=== PATIENT | female | born 1950 | race Two or more races ===

== ENCOUNTER 2016-10-01 18:18 | Emergency (ER) | payer MEDICARE, OTHER ==
[~2016-10-01 18:18] MED LIST: ATORVASTATIN CA10 M1 PO; CIPRO500 MG PO; COREG6.25 M1 PO; CYMBALTA60 M1 PO; CYMBALTA60 MG PO; DARVOCET-N 1001 TAB; ESTRATEST H.S.1 TAB PO; LOVENOX40 MG/0.4 SQ; MACROBID100 MG/CAP PO; MELOXICAM7.5 MG PO; MOBIC7.5 MG; NEURONTIN300 M1 PO; NEURONTIN300 MG PO; NORVASC10 M2 PO; NORVASC10 MG PO; NUCYNTA50 MG PO; OXYTROL TD; PREMARIN1.25 MG PO; PRINIVIL2.5 MG PO; TRIAMTERENE; ULTRAM50 MG; ULTRAM50 MG PO; XARELTO10 MG PO; ZESTRIL20 MG PO
[2016-10-15] MEDS ORDERED: *CPAP (16:13)
[2016-10-21] MEDS ORDERED: ASPIRIN325 M3 PO (12:30)
[2016-10-21] MEDS ORDERED: ULTRAM50 M1 PO (12:31)
[2016-10-21] MEDS ORDERED: TYLENOL325 M2 PO (12:31)
== END 2016-10-01 19:00 ==
LOC: EDMED 18:18
DX: H11.32 Conjunctival hemorrhage, left eye (principal); I10 Essential (primary) hypertension; F17.200 Nicotine dependence, unspecified, uncomplicated; Z98.890 Other specified postprocedural states; Z79.899 Other long term (current) drug therapy